=== PATIENT | female | born 1930 | race Caucasian/White ===

== ENCOUNTER 2017-01-30 18:58 | Emergency (ER) | payer MEDICARE, OTHER ==
[~2017-01-30] VITALS: Ht 157.5 cm; Wt 84.1 kg
[~2017-01-30 18:58] MED LIST: CELE200C PO; HYD25 PO; OSLT75C PO; PANT40TA3 PO; TRAM50TA2 PO; ZOLP10TA PO
[2017-01-30 19:06] VITALS: Ht 157.5 cm; Wt 84.1 kg
[2017-01-30] MEDS ORDERED: SODIUM CHLORIDE 0.9% 1L BAG IV* STA (19:22)
--- NOTE | 2017-01-30 19:51 | ERA ---
ER Documentation Chief Complaint Date/Time DATE: 01/30/17 TIME: 19:49 Chief Complaint BIBA RA 890, c/o urinary retention X3 days HPI This is an 86-year-old female who presents with her family. The patient has a prolonged history of urinary tract infections. For approximately 3 days the patient is having difficulty urinating. She describes diffuse abdominal discomfort and pain is approximately 6 out of 10 in cramping. No nausea or vomiting, no constipation she is having regular bowel movements. ROS All systems reviewed and are negative except as per history of present illness. Medications Home Meds Active Scripts Cephalexin* (Keflex*) 500 Mg Capsule, 500 MG PO BID for 7 Days, CAP Prov:DERICK MARX MD 01/30/17 Reported Medications Spironolactone* (Aldactone*) 25 Mg Tablet, 25 MG PO DAILY, #30 TAB 01/30/17 Docusate Sodium* (Colace*) 250 Mg Capsule, 250 MG PO QHS, #30 CAP 01/30/17 Hydrochlorothiazide* (Hydrochlorothiazide*) 25 Mg Tab, 25 MG PO DAILY, TAB 06/01/15 Pantoprazole* (Protonix*) 40 Mg Tablet.dr, 40 MG PO DAILY, TAB 06/01/15 Zolpidem Tartrate* (Ambien*) 10 Mg Tablet, 10 MG PO HS for INSOMNIA, TAB 06/01/15 Celecoxib* (Celebrex*) 200 Mg Capsule, 200 MG PO DAILY 06/24/12 Discontinued Scripts Oseltamivir Phosphate* (Tamiflu*) 75 Mg Capsule, 75 MG PO BID for 5 Days, CAP Prov:FELICIANO OCHOA DO 08/11/15 Tramadol HCl (Tramadol HCl) 50 Mg Tablet, 50 MG PO Q6, #20 TAB Prov:HORTENCIA STEELE MD 06/01/15 Allergies Allergies: Coded Allergies: No Known Allergy (Unverified , 01/30/17) PMhx/Soc History of Surgery: Yes (lobectomy, non-malignant) Anesthesia Reaction: No Hx Neurological Disorder: No Hx Respiratory Disorders: No Hx Cardiac Disorders: Yes (HTN, HIGH CHOLESTEROL) Hx Psychiatric Problems: No Hx Miscellaneous Medical Probl: Yes (HTN,DM, OA, L PNEUMOTHORAX) Hx Alcohol Use: No Hx Substance Use: No Hx Tobacco Use: No FmHx Family History: No diabetes Physical Exam Vitals Vital Signs Date Time Temp Pulse Resp B/P Pulse Ox O2 Delivery O2 Flow Rate FiO2 01/30/17 19:06 100.2 94 18 123/66 94 Physical Exam General: Uncomfortable Head: Normocephalic, atraumatic. Eyes: Pupils equally reactive, EOM intact ENT: Moist mucous membranes Neck: Supple, no lymphadenopathy Respiratory: Lungs clear bilaterally, no distress Cardiovascular: RRR, no murmurs, rubs, or gallops Abdominal: Soft, mild diffuse tenderness without rebound or guarding : Deferred MSK: No edema, no unilateral swelling, 5/5 strength Neurologic: Alert and oriented, moving all extremities, normal speech, no focal weakness, no cerebellar signs Skin: No rash Psych: Normal mood Result Diagram: 01/30/17192901/30/171929 Results 24 hrs Laboratory Tests Test 01/30/17 19:30 White Blood Count 8.610^3/ul Red Blood Count 4.5210^6/ul Hemoglobin 13.0g/dl Hematocrit 39.1% Mean Corpuscular Volume 86.5fl Mean Corpuscular Hemoglobin 28.8pg Mean Corpuscular Hemoglobin Concent 33.2g/dl Red Cell Distribution Width 13.7% Platelet Count 71352^3/UL Mean Platelet Volume 9.0fl Neutrophils % 64.9% Lymphocytes % 24.9% Monocytes % 9.2% Eosinophils % 0.6% Basophils % 0.2% Nucleated Red Blood Cells % 0.0/100WBC Neutrophils # 5.610^3/ul Lymphocytes # 2.210^3/ul Monocytes # 0.810^3/ul Eosinophils # 0.110^3/ul Basophils # 0.010^3/ul Nucleated Red Blood Cells # 0.010^3/ul Prothrombin Time 13.3Sec Prothrombin Time Ratio 1.0 INR International Normalized Ratio 1.01 Activated Partial Thromboplast Time 26.0Sec Urine Color YELLOW Urine Clarity TURBID Urine pH 5.0 Urine Specific [place] 1.019 Urine Ketones NEGATIVEmg/dL Urine Nitrite NEGATIVEmg/dL Urine Bilirubin NEGATIVEmg/dL Urine Urobilinogen NEGATIVEmg/dL Urine Leukocyte Esterase 3+Bola/ul Urine Microscopic RBC > 182/HPF Urine Microscopic WBC > 182/HPF Urine Bacteria FEW/HPF Urine Mucus FEW/HPF Urine Hemoglobin 3+mg/dL Urine Glucose NEGATIVEmg/dL Urine Total Protein 2+mg/dl Sodium Level 143mmol/L Potassium Level 3.1mmol/L Chloride Level 98mmol/L Carbon Dioxide Level 31mmol/L Anion Gap 17 Blood Urea Nitrogen 16mg/dl Creatinine 0.84mg/dl Glucose Level 112mg/dl Lactic Acid Level 1.7mmol/L Calcium Level 9.5mg/dl Total Bilirubin 0.2mg/dl Direct Bilirubin 0.00mg/dl Indirect Bilirubin 0.2mg/dl Aspartate Amino Transf (AST/SGOT) 23IU/L Alanine Aminotransferase (ALT/SGPT) 26IU/L Alkaline Phosphatase 92IU/L Total Protein 7.1g/dl Albumin 4.2g/dl Globulin 2.90g/dl Albumin/Globulin Ratio 1.44 Current Medications Medications (Trade) Dose Ordered Sig/Gracie Route PRN Reason Start Time Stop Time Status Last Admin Dose Admin Sodium Chloride (NS) 2,610 ml BOLUS OVER 2 HOURS STAT IV* 01/30/17 19:22 01/30/17 19:23 DC 01/30/17 19:53 Acetaminophen 650 mg 650 mg ONCE ONCE PO 01/30/17 20:00 01/30/17 20:01 DC 01/30/17 19:53 Ceftriaxone Sodium (Rocephin) 50 ml @ 100 mls/hr ONCE ONCE IVPB 01/30/17 20:30 01/30/17 20:59 01/30/17 20:30 Procedures/MDM EKG, MONITORS, & DIAGNOSTIC IMAGING: EKG: I reviewed and interpreted a 12-lead EKG. Rhythm: Normal sinus rhythm Ectopy: None Intervals: No abnormalities ST segments: No elevations or depressions T waves: No contiguous inversions CT abdomen and pelvis: IMPRESSION: 1. 32 mm cavitary lesion is seen at the left lung base, and this is decreased in size over interval since 08/06/2012. 2. Air-fluid level in the cavitary lesion may represent an infectious process. 3. Fat inflammatory changes over the urinary bladder may represent sequela of cystitis. 4. Gallstones again seen. 5. Moderate hiatal hernia. 6. Otherwise, no acute process in the abdomen or pelvis. RPTAT: [facility] LAB INTERPRETATION: Urinary tract infection, normal lactic, normal white count MEDICAL DECISION MAKING: The patient presents with signs and symptoms are somewhat concerning for urinary retention. However, Torres catheter insertion only revealed approximately 150 cc of urine that was cloudy. This is concerning for urinary tract infection which could be the etiology of her symptoms. However, consider possible dehydration and given the patient's age, generalized abdominal pain, CT imaging and sepsis screening will be initiated. ER COURSE: The patient has a much improved symptoms. She was given ceftriaxone for urinary tract infection, urine cultures were sent. The patient has no white count and normal lactic acid. The patient is feeling much better. The patient' s CT does show this cavitary lesion that is improving. The family member states that it several years ago the patient had surgery for cyst removal and this is a known process. Outpatient follow-up is appropriate. No evidence or risk factors for tuberculosis. The CT imaging was printed off for the patient' s follow-up benefit. I believe the patient will benefit from outpatient follow-up, treatment for urinary tract infection I kept the patient and/or family informed of laboratory and diagnostic imaging results throughout the emergency room course. DISPOSITION PLAN: We discussed follow up with the patient's primary care doctor within 24 to 48 hours as needed. We also discussed return to the emergency room for worsening symptoms or worsening condition. Outpatient referral: [None required] Discharge Medications: Keflex Departure Diagnosis: Primary Impression: Abdominal pain, generalized Additional Impression: Urinary tract infection Qualified Code: N30.00 - Acute cystitis without hematuria Condition: Stable DERICK MARX MD Jan 30, 2017 19:51
[2017-01-30 19:53] LABS: BASOPHILS % 0.2 % (0.0-2.0); EOSINOPHILS # 0.1 10^3/ul (0.0-0.5); EOSINOPHILS % 0.6 % (0.0-7.0); HEMATOCRIT 39.1 % (37.0-47.0); LYMPHOCYTES # 2.2 10^3/ul (0.8-2.9); LYMPHOCYTES % 24.9 % (15.0-51.0); MEAN CORPUSCULAR HEMOGLOBIN 28.8 pg (29.0-33.0); MEAN CORPUSCULAR HGB CONC 33.2 g/dl (32.0-37.0); MEAN CORPUSCULAR VOLUME 86.5 fl (82.0-101.0); MONOCYTE # 0.8 10^3/ul (0.3-0.9); MONOCYTES % 9.2 % (0.0-11.0); NEUTROPHIL # 5.6 10^3/ul (1.6-7.5); NEUTROPHILS % 64.9 % (39.0-77.0); PLATELET COUNT 269 10^3/UL (140-415); RED BLOOD COUNT 4.52 10^6/ul (4.20-5.40); RED CELL DISTRIBUTION WIDTH 13.7 % (11.5-14.5); WHITE BLOOD COUNT 8.6 10^3/ul (4.8-10.8)
[2017-01-30] MEDS ORDERED: ACETAMINOPHEN 325 MG TAB PO ONE (20:00)
[2017-01-30 20:03] LABS: ADD UMIC YES; UR ASCORBIC ACID 40 mg/dL (NEGATIVE); UR BACTERIA FEW /HPF (NONE SEEN); UR BILIRUBIN (Dip) NEGATIVE (NEGATIVE); UR BLOOD (Dip) 3+ mg/dL (NEGATIVE); UR CLARITY TURBID (CLEAR); UR COLOR YELLOW (YELLOW); UR GLUCOSE (Dip) NEGATIVE (NEGATIVE); UR KETONES (Dip) NEGATIVE (NEGATIVE); UR LEUKOCYTE ESTERASE (Dip) 3+ Leu/ul (NEGATIVE); UR MUCUS FEW /HPF (NONE SEEN); UR NITRITE (Dip) NEGATIVE (NEGATIVE); UR RBC > 182 /HPF (0-5); UR SPECIFIC GRAVITY (Dip) 1.019 (1.003-1.030); UR TOTAL PROTEIN (Dip) 2+ mg/dl (NEGATIVE); UR UROBILINOGEN (Dip) NEGATIVE (NEGATIVE); UR WBC CLUMPS MANY /HPF (NONE SEEN)
[2017-01-30 20:08] LABS: INR 1.01; PROTIME 13.3 Sec (12.2-14.2)
[2017-01-30 20:13] LABS: ALBUMIN 4.2 g/dl (3.3-4.9); ALBUMIN/GLOBULIN RATIO 1.44; BILIRUBIN,INDIRECT 0.2 mg/dl (0-1.1); BILIRUBIN,TOTAL 0.2 mg/dl (0.2-1.3); CALCIUM 9.5 mg/dl (8.4-10.2); CREATININE 0.84 mg/dl (0.44-1.00); POTASSIUM 3.1 mmol/L (3.5-5.1); TOTAL PROTEIN 7.1 g/dl (6.1-8.1)
[2017-01-30] MEDS ORDERED: CEFTRIAXONE 1 GM/50 ML (PMX) 50 ML IVPB ONE (20:30)
[2017-01-30] MEDS ORDERED: CEPH-443 PO (20:42)
[2017-01-30] MEDS ORDERED: DOCU250C58 PO (20:46)
[2017-01-30] MEDS ORDERED: SPIR25TA PO (20:47)
--- NOTE | 2017-01-30 20:49 | RADRPT ---
PROCEDURE: CT abdomen and pelvis without contrast. CLINICAL INDICATION: Possible Sepsis TECHNIQUE: Axial, sagittal and coronal reformatted images are available for interpretation. CTDI: 22.84 mGy and DLP: 1189.14 mGy-cm. COMPARISON: 08/06/2012 FINDINGS: CT abdomen: 32 mm bulla at the left lung base with air-fluid level compatible with an infectious process. Dystro phic calcifications are seen in this region. This has decreased in size over interval, previously me asuring about 58 mm. Mild bibasilar atelectasis. The lung bases are otherwise clear. The heart siz e is enlarged, without pericardial thickening or effusion. Moderate hiatal hernia. The liver contains multiple low attenuation lesions statistically representing cysts, largest measur ing about 2 cm in the left hepatic lobe. Otherwise, the liver is normal in size and density without focal mass or intrahepatic biliary dilatation. The spleen is normal in size and homogeneous in den sity. The stomach is partially collapsed, but is grossly unremarkable. The pancreas as visualized is normal. The gallbladder contains gallstones; and biliary tree is unremarkable and there is no ev idence for biliary dilatation. The adrenal glands are symmetric and normal. The kidneys are symmet rically unremarkable as well. No renal calculus or obstructive uropathy or mass lesion is seen. The aorta is of normal caliber. Aortic vascular calcifications are present. There is no retroperit soliz lymphadenopathy. The srinivasa hepatis region is clear. The colon contains scattered diverticul a; and mesentery, as visualized, is unremarkable. CT pelvis: Torres catheter and balloon in the urinary bladder, with inflammatory changes over the bladder sugges ting cystitis. The small bowel loops situated within the pelvis are unremarkable. The pelvic organs are normal. T he pelvic sidewalls and inguinal regions are clear. The sigmoid colon diverticulosis; and rectum is unremarkable. No mass, lymphadenopathy, or free fluid is seen. No acute inflammation is seen. 23 mm likely lipoma at the ileocecal junction. The appendix is unremarkable. Fat containing periumbil ical hernia. The surrounding osseous structures are remarkable for mild degenerative spondylosis of the spine. Pa rs interarticularis defects at L5 with grade II anterolisthesis of L5 on S1 and loss of disk materia l with endplate eburnation and chronic bone articulation at the L5-S1 level No osteolytic or osteobl astic lesion is detected. IMPRESSION: 1. 32 mm cavitary lesion is seen at the left lung base, and this is decreased in size over interval since 08/06/2012. 2. Air-fluid level in the cavitary lesion may represent an infectious process. 3. Fat inflammatory changes over the urinary bladder may represent sequela of cystitis. 4. Gallstones again seen. 5. Moderate hiatal hernia. 6. Otherwise, no acute process in the abdomen or pelvis. RPTAT: UU Physician Solomon Date Time Electronically viewed and signed by Dominique Mccormick Physician on 01/30/2017 20:49 RS/
[2017-01-30 20:59] VITALS: BP 135/79; PULSE 85; RESP 17; TEMP 98.6
== END 2017-01-30 21:25 | disposition home or self-care (01) ==
LOC: E/R 18:58
DX: R10.84 Generalized abdominal pain (principal); N30.00 Acute cystitis without hematuria; E11.9 Type 2 diabetes mellitus without complications; I10 Essential (primary) hypertension
CPT/HCPCS: 36415; 51702; 74176; 80053; 81001; 83605; 85025; 85610; 85730; 87040; 87086; 93005; 96361; 96365; 99285; J7030; J0696

== ENCOUNTER 2017-12-09 15:50 | Emergency (ER) | END 2017-12-09 19:33 | disposition home or self-care (01) ==